=== PATIENT | male | born 1980 | race Caucasian/White ===

== ENCOUNTER 2019-07-17 08:25 | Outpatient (CLI) | payer OTHER ==
[~2019-07-17] VITALS: Ht 188 cm; Wt 86.4 kg
--- NOTE | ~2019-07-17 | HEMODYNAMI ---
PATIENT:SHANTI CORDOBA MEDICAL RECORD: [id number] : 80 LOCATION:[facility] ADMISSION DATE: 07/17/19 Generatedon:07/17/201911:25 Patient name: SHANTI CORDOBA Patient #: [id number] SSN: [id number] : 1980 Date of study: 07/17/2019 Page: Of Hemodynamic Procedure Report Patient Data Patient Demographics Procedure consent was obtained First Name: SHANTI Gender: Male Last Name: BERYL : 1980 Patient #: [id number] Age: 39 year(s) Race: SSN: [id number] Additional ID: [id number] Contact details [address]: [address] [place] [address] State: [place] City: [place] Zip code: [address] Past Medical History Allergies: No known allergies Admission Admission Data Admission Date: 07/17/2019 Admission Time: 8:25 Arrival Date: 07/17/2019 Arrival Time: 0:00 Admit Source: Other Insurance Payor: Private health insurance [facility] #: [id number] Height (in.): 74 BSA: 2.13 (m2) Height (cm.): 187.96 BMI: 24.44 (kg/m2) Weight (lbs.): 190.39 Weight (kg.): 86.36 Lab Results Lab Result Date: 07/17/2019 Lab Result Time: 0:00 Biochemistry Name Units Result Min Max BUN mg/dl 20 --(----)*- 7 18 Creatinine mg/dl 1.2 --(---*)-- 0.6 1.3 eGFR ml/min 72 *-(----)-- 90 120 NONAFRICAN CBC Name Units Result Min Max Hematocrit % 50.4 --(--*-)-- 42 54 Hemoglobin g/dl 17.5 --(---*)-- 13.5 17.5 Procedure Procedure Types Cath Procedure Diagnostic Procedure LHC LHC w/Coronaries Procedure Description Procedure Date Procedure Date: 07/17/2019 Procedure Start Time: 11:09 Procedure End Time: 11:20 Procedure Staff Name Function Taiwo Daly MD Performing Physician Norma Mcgregor RT Monitor Sheyla Wilson RT Monitor Joseph Peña RN Nurse Karen Oliveros RT Scrub Indication Cardiomyopathy Procedure Data Cath Procedure Fluoroscopy Diagnostic fluoroscopy Total fluoroscopy Time: 1.4 time: 1.4 min min Diagnostic fluoroscopy Total fluoroscopy dose: 357 dose: 357 mGy mGy Contrast Material Contrast Material Type Amount (ml) Isovue 370 53 Entry Location Entry Primary Successful Side Size Upsize Upsize Entry Closure Tavares ccessful Closure Location (Fr) 1 (Fr) 2 (Fr) Remarks Device Remarks Radial Right 6 Fr Mechanical artery Short Compression Estimated blood loss: 5 ml Diagnostic catheters Device Type Used For End Catheter Placement DIAGNOSTIC [place] 110cm 5 Procedure Fr catheter (122110) DIAGNOSTIC AR2 MOD 5 Fr Procedure catheter ([id number]) Procedure Complications No complications Procedure Medications Medication Administration Route Dosage Oxygen etCO2 Nasal cannula 2 l/min Lidocaine 2% added to field 20 Heparin Flush Bag added to field 2 bags (1000units/500ml NS) 0.9% NaCl I.V. 100 ml/hr Radial Cocktail I.A. 1 syringe (Verapamil 2mg/Nitro 400mcg/Heparin 1500units) Versed I.V. 1 mg Fentanyl I.V. 50 mcg Versed I.V. 1 mg Fentanyl I.V. 50 mcg Versed I.V. 1 mg Fentanyl I.V. 50 mcg Hemodynamics Rest BSA: 2.13 (m2) HGB: 17.5 (g/dl) O2 Consumption: Estimated: 289.68 (ml/min) O2 Co nsumption indexed: Estimated:136 (ml/min/m) Pre Cath Intra NCS Post Cath Vital Signs Time Heart Resp SPO2 etCO2 NIBP Rhythm Pain Sedation Rate (ipm) (%) (mmHg) (mmHg) Status Level (bpm) 10:57:40 83 11 100 33.9 110/72(85) A-Fib 0 (11) 10(A) , No pain 11:01:52 92 16 97 31.6 101/74(90) A-Fib 0 (11) 10(A) , No pain 11:06:02 95 19 94 33.9 98/66(78) A-Fib 0 (11) 10(A) , No pain 11:10:14 81 12 93 34.6 96/61(85) A-Fib 0 (11) 10(A) , No pain 11:14:23 117 10 91 45.2 116/65(91) A-Fib 0 (11) 9(A) , No pain 11:18:29 130 11 94 0 102/81(93) A-Fib 0 (11) 9(A) , No pain 11:22:41 100 13 93 47.5 102/69(88) A-Fib 0 (11) 10(A) , No pain Medications Time Medication Route Dose Verified Delivered Reason Notes Effectiveness by by 11:01:28 Oxygen etCO2 2 l/min Taiwo Buffie used for Nasal Addy Peña RN procedure cannula 11:01:35 Lidocaine 2% added 20ml Taiwoamari Maravilla for local to vial Addy Daly MD anesthetic field 11:01:44 Heparin Flush added 2 bags Taiwo Maravilla used for Bag to Addy Daly MD procedure (1000units/500ml field NS) 11:01:53 0.9% NaCl I.V. 100 Taiwoamari Ruiz Per ml/hr Addy Peña RN physician 11:09:43 Versed I.V. 1 mg Taiwo Hernándezie for sedation Addy Peña RN 11:09:48 Fentanyl I.V. 50 mcg Taiwo Hernándezie for sedation Addy Peña RN 11:12:33 Versed I.V. 1 mg Taiwo Buffie for sedation Addy Peña RN 11:12:36 Fentanyl I.V. 50 mcg Taiwo Ruiz for sedation Addy Peña RN 11:13:34 Radial Cocktail I.A. 1 Taiwo Maravilla for (Verapamil syringe Addy Daly MD vasodilation 2mg/Nitro 400mcg/Heparin 1500units) 11:17:01 Versed I.V. 1 mg Taiwo Hernándezie for sedation Addy Peña RN 11:17:04 Fentanyl I.V. 50 mcg Taiwo Hernándezie for sedation Addy Peña RN Procedure Log Time Note 10:37:45 Diagnostic Cath Status : Urgent 10:38:24 Indication : Cardiomyopathy 10:38:37 Admit Source: Other 10:38:44 Procedure Status Elective Heart Cath (OP). 10:38:46 Time tracking: Regular hours (M-F 7:00 - 5:00) 10:38:51 Plan of Care:Hemodynamics will remain stable., Cardiac rhythm will remain stable., Comfort level will be maintained., Respiratory function will remain adequate., Patient/ family verbilizes understanding of procedure., Procedure tolerated without complication., Recovers from procedure without complications.. 10:39:04 Joseph Peña RN sent for patient. Start room use. 10:43:11 Lab results completed and on chart. 10:43:16 Stress Test: no; N/A ? 10:43:18 Risk of Mortality: .1 10:43:22 Risk of blood transfusion: .1 10:43:25 Risk of ERICA: 0.7 10:44:32 Lab Result : BUN 20 mg/dl 10:44:32 Lab Result : Creatinine 1.2 mg/dl 10:44:32 Lab Result : Hemoglobin 17.5 g/dl 10:44:32 Lab Result : eGFR NONAFRICAN 72 ml/min 10:44:33 Lab Result : Hematocrit 50.4 % 10:46:30 Informed consent obtained and on chart 10:47:00 Patient allergic to No known allergies 10:48:28 Patient Height : 74 inches 10:48:34 Patient Weight : 190.39 lbs 10:48:42 Insurance Payor : Private health insurance 10:49:02 Arrival Date: 07/17/2019 12:00:00 AM 10:50:52 Patient received from Pre/Post Procedure Room to CCL 1 Alert and oriented. Tansferred to table in Supine position. 10:50:53 Warm blankets applied, and kris hugger turned on for patient comfort. 10:50:54 Correct patient and procedure confirmed by team. 10:50:54 ECG and BP/O2 sat monitors applied to patient. 10:56:33 Vital chart was started 10:56:37 Rhythm: atrial fibrillation 10:56:38 Full Disclosure recording started 10:56:49 H&P Date Dictated: 07/13/2019 Within 30 days and on chart., H&P Addendum completed by physician on day of procedure. (MUST COMPLETE FOR ALL OUTPATIENTS). 10:56:50 Pre-procedure instructions explained to patient. 10:56:51 Pre-op teaching completed and patient verbalized understanding. 10:56:52 Family in patients room. 10:56:53 Patient NPO since Midnight. 10:57:00 Is the patient allergic to Iodine/contrast media? No. 10:57:01 Is patient on blood thinner?Yes 10:57:09 ACC The patient was administered the following blood thiners within the last 24 hours: ACCPradaxa 10:57:11 Patient diabetic? No. 10:57:14 Previous problem with sedation/anesthesia? No ? 10:57:14 Snore? Yes 10:57:17 Sleep apnea? No 10:57:19 Deviated septum? No 10:57:19 Opens mouth fully? Yes 10:57:20 Sticks out tongue? Yes 10:57:22 Airway obstruction? No ? 10:57:24 Dentures? No ? 10:57:27 Pre procedure: right dorsailis pedis pulse 2+ Normal; easily identifiable; not easily obliterated 10:57:29 Modified Merrill's test Radial < 7 seconds 10:57:31 Patient pain scale 0/10 ?. 10:57:36 IV patent on arrival in left hand with 0.9% NaCl at KVO. 10:57:45 Right Radial & Right Groin area was prepped with chlora-prep and draped in sterile fashion 10:57:46 Alarms reviewed by R. N. 10:57:46 Sharps counted by scrub and verified by R.N. 10:59:42 Use device set Radial Dx or PCI 10:59:43 ACIST Syringe (27429) opened to sterile field. 10:59:44 Bag Decanter (2001S) opened to sterile field. 10:59:44 ACIST Hand Control (80522) opened to sterile field. 10:59:45 ACIST Manifold (57182) opened to sterile field. 10:59:45 Tegaderm 4 x 4 (1626W) opened to sterile field. 10:59:47 Medline Cath Pack ([id number]) opened to sterile field. 10:59:47 MBrace Wrist Support ([id number]) opened to sterile field. 10:59:48 EMERALD Guide Wire (940-701) opened to sterile field. 10:59:48 SHEATH 6FR RAIN (5002689) opened to sterile field. 11:01:28 Oxygen 2 l/min etCO2 Nasal cannula was administered by Joseph Peña RN; used for procedure; Verbal order read back and verified. 11:01:35 Lidocaine 2% 20ml vial added to field was administered by Taiwo Daly MD; for local anesthetic; Verbal order read back and verified. 11:01:44 Heparin Flush Bag (1000units/500ml NS) 2 bags added to field was administered by Taiwo Daly MD; used for procedure; Verbal order read back and verified. 11:01:53 0.9% NaCl 100 ml/hr I.V. was administered by Joseph Peña RN; Per physician; Verbal order read back and verified. 11:08:04 --------ALL STOP TIME OUT------ 11:08:05 Final Timeout: patient, procedure, and site verified with staff and physician. All members of the team are in agreement. 11:08:15 Right Radial & Right Groin site verified by team. 11:08:20 Fire Safety Assessment: A--An alcohol-based skin anteseptic being used preoperatively., C--Open oxygen or nitrous oxide is being used., D--An ESU, laser, or fiber-optic light is being used. 11:08:24 Physical assessment completed. ASA score P 2 - A patient with mild systemic disease as per Taiwo Daly MD. 11:08:28 2) 60-89 Mildly reduced kidney function, and other findings (as for stage 1) point to kidney disease. 11:08:32 Maximum allowable contrast dose (3.7 X eGFR X 0.75)200 ml. 11:08:37 Sedation plan: IV Moderate Sedation Medication:Versed, Fentanyl 11:09:29 Procedure started. 11:09:43 Versed 1 mg I.V. was administered by Joseph Peña RN; for sedation; Verbal order read back and verified. 11:09:48 Fentanyl 50 mcg I.V. was administered by Joseph Peña RN; for sedation; Verbal order read back and verified. 11:09:57 Local anesthetic to right radial artery with Lidocaine 2% by Taiwo Daly MD.INITIAL ACCESS ONLY 11:12:33 Versed 1 mg I.V. was administered by Joseph Peña RN; for sedation; Verbal order read back and verified. 11:12:36 Fentanyl 50 mcg I.V. was administered by Joseph Peña RN; for sedation; Verbal order read back and verified. 11:12:36 A 6 Fr Short sheath was inserted into the Right Radial artery 11:12:52 A DIAGNOSTIC [place] 110cm 5 Fr catheter ([id number]) was advanced over the wire and used for Procedure. 11:13:30 LV gram done using DAN 11:13:34 Radial Cocktail (Verapamil 2mg/Nitro 400mcg/Heparin 1500units) 1 syringe I.A. was administered by Taiwo Daly MD; for vasodilation; Verbal order read back and verified. 11:13:57 Injector settings: Ml/sec: 10, Volume: 20, 11:14:18 EF : 20 % 11:14:32 LCA angiography performed. 11:15:45 Catheter exchanged over wire. 11:17:01 Versed 1 mg I.V. was administered by Joseph Peña RN; for sedation; Verbal order read back and verified. 11:17:04 Fentanyl 50 mcg I.V. was administered by Joseph Peña RN; for sedation; Verbal order read back and verified. 11:17:17 A DIAGNOSTIC AR2 MOD 5 Fr catheter ([id number]) was advanced over the wire and used for Procedure. 11:17:32 RCA angiography performed. 11:17:40 Catheter removed. 11:17:43 ZEPHYR REGULAR TR BAND (886841) opened to sterile field. 11:17:57 Sheath removed intact; hemostasis achieved with Mechanical Compression to the Right Radial artery. 11:18:00 Procedure ended.(Physican Out) 11:18:14 Fluoroscopy time 01.40 minutes. 11:18:18 Fluoroscopy dose: 357 mGy 11:18:18 Flurop Dose total: 357 11:18:24 Dose Area Product 86285 mGy/cm. 11:18:29 Contrast amount:Isovue 370 53ml. 11:18:32 Maximum allowable dose exceeded? No. 11:18:33 Sharps counted by scrub and verified by R.N. 11:18:35 Shaniko band inflated with 10cc of air. 11:18:39 Post Procedure Pulses reassessed and unchanged 11:18:43 Post procedure: right dorsailis pedis pulse 2+ Normal; easily identifiable; not easily obliterated. 11:18:47 Post-procedure physical assessment completed. ASA score P 2 - A patient with mild systemic disease as per Taiwo Daly MD. 11:18:50 Post procedure rhythm: unchanged. 11:18:53 Estimated blood loss: 5 ml 11:18:55 Post procedure instruction explained to patient.Patient verbalizes understanding. 11:18:56 Patient needs reinforcement of post procedure teaching. 11:19:59 Procedure and supply charges have been captured, reviewed, submitted and are correct. 11:20:03 Procedure Complication : No complications 11:20:06 Vital chart was stopped 11:20:08 [facility] Findings: mild to moderate CAD (<70%) 11:20:12 Operative report dictated upon procedure completion. 11:20:12 See physician's report for complete and final results. 11:20:14 Report given to Pre/Post Procedure Room. 11:20:17 Patient transfered to Pre/Post Procedure Room with Stretcher. 11:20:20 Procedure ended. 11:20:20 Full Disclosure recording stopped 11:23:46 End room use (Document Last) 11:24:34 End room use (Document Last) 11:25:10 End room use (Document Last) Device Usage Item Name Manufacture Quantity Catalog Hospital Part Current Minima l Lot# / Number Charge Number Stock Stock Serial# Code ACIST Acist 1 99621 986904 163954 659521 20 Syringe Medical (15465) Systems Inc Bag Microtek 1 2001S 899499 42970 242127 5 Decanter Medical Inc. (2001S) ACIST Hand Acist 1 00763 760503 532482 317808 5 Control Medical (27106) Systems Inc ACIST Acist 1 78223 347380 766886 250168 5 Manifold Medical (61987) Systems Inc Tegaderm 4 3M 1 1626W 047253 953403 071357 5 x 4 (1626W) Medline Medline 1 [id number] 447370 67399 612199 5 Cath Pack ([id number]) MBrace Advanced 1 140-0250-00 406403 50072 143491 5 Wrist Vascular Support Dynamics (261056049) EMERALD Cardinal 1 502-455 386695 668008 568433 5 Guide Wire Health (472-455) SHEATH 6FR Cardinal 1 5083345 822837 7236760 061148 5 [facility] (9713453) DIAGNOSTIC Terumo 1 40-5013 296537 605807 898465 5 [place] 110cm 5 Fr catheter (164526) DIAGNOSTIC Cardinal 1 193777W 704330 084590 593128 20 AR2 MOD 5 Health Fr catheter (012772N) ZEPHYR Cardinal 1 843019 548740 6054617 252061 5 REGULAR TR Health BAND (662543) Signature Audit Snook Stage Time Signature Unsigned Intra-Procedure 07/17/2019 Sheyla Wilson 11:24:34 AM RT(R) Intra-Procedure 07/17/2019 Joseph Peña RN 11:25:10 AM Intra-Procedure 07/17/2019 Taiwo Daly 11:25:47 AM [address] [place] [address]
--- NOTE | ~2019-07-17 | OP ---
PATIENT NAME: SHANTI CORDOBA MEDICAL RECORD: [id number] :80 LOCATION:D.CAT ADMISSION DATE: SURGEON: GIANNA DEMPSEY MD DATE OF OPERATION: 07/17/2019 PROCEDURES: 1. Left heart catheterization. 2. Selective coronary angiography. 3. Left ventriculogram. INDICATION: Cardiomyopathy and congestive heart failure. PROCEDURE PERFORMED: After informed consent was obtained and after a detailed description of risks, benefits as well as alternative therapies, the patient elected to proceed with angiogram and heart catheterization. The right radial area was prepped and draped in normal sterile fashion. Right radial artery was cannulated via modified Seldinger technique with placement of 5-Chinese sheath. All catheters exchanged through this sheath. FINDINGS: Left ventriculogram was performed in standard 30-degree DAN view, reveals global hypokinesis, ejection fraction is 20%. SELECTIVE CORONARY ANGIOGRAPHY: Left main, left anterior descending, left circumflex, right coronary artery are all smooth-walled vessels with no angiographic evidence of coronary artery disease. OVERALL IMPRESSION: 1. No angiographic evidence of coronary artery disease. 2. Nonischemic cardiomyopathy. TRANSINT:[id number] Voice Confirmation ID: [id number] DOCUMENT ID: [id number] GIANNA DEMPSEY MD CC: [id number] DICTATION DATE: 07/17/19 1123 MANAGER TRAVEL: 07/17/19 2144 DEP CLI 07/17/19 [id number] [place] [address]
[2019-07-17] MEDS ORDERED: TOPROL XL50 MG PO (08:40)
[2019-07-17] MEDS ORDERED: FUROSEMIDE40 MG PO (08:41)
[2019-07-17] MEDS ORDERED: ENTRESTO 24 MG1 EACH PO (08:41)
[2019-07-17] MEDS ORDERED: ALDACTONE25 MG PO (08:42)
[2019-07-17] MEDS ORDERED: PRADAXA150 MG PO (08:42)
[2019-07-17 08:46] VITALS: BP 96/64; Ht 188 cm; Wt 86.4 kg
[2019-07-17 09:04] LABS: BASOPHILS 0.5 % (0-2); EOSINOPHILS 5.1 % (0-7); HEMATOCRIT 50.4 % (42.0-54.0); HEMOGLOBIN 17.5 g/dL (13.5-17.5); IMMATURE GRANULOCYTES 0.4 % (0-5); LYMPHOCYTES 31.2 % (15-50); MCH 32.6 pg (26.0-34.0); MCHC 34.7 g/dL (31.0-37.0); MEAN PLATELET VOLUME 9.7 fL (7.4-10.4); MONOCYTES 12.3 % (2-11); NEUTROPHILS 50.5 % (40-80); PLATELET COUNT 206 10x3/uL (130-400); RBC 5.36 10x6/uL (4.20-6.10); RDW 12.1 % (11.5-14.5); WBC 5.7 10x3/uL (4.8-10.8)
[2019-07-17 09:23] LABS: ANION GAP 12.4 mmol/L (8-16); CALCIUM 9.2 mg/dL (8.5-10.1); CARBON DIOXIDE 29.7 mmol/L (21.0-32.0); CHOL - HDL RATIO 2.6 ratio (2.3-4.9); CREATININE - SERUM 1.2 mg/dL (0.6-1.3); LDL-HDL RATIO 1.3 ratio (1.5-3.5); POTASSIUM - SERUM 4.1 mmol/L (3.5-5.1)
--- NOTE | 2019-07-17 11:32 | NUR ---
PT ARRIVED BY STRETCHER. PLACED ON MONITORS. ASSESSMENT COMPLETED. FAMILY AT BEDSIDE. DR. DEMPSEY ROUNDED AND SPOKE WITH PT'S FAMILY.
[2019-07-17] MEDS ORDERED: COREG12.5 MG PO (11:47)
--- NOTE | 2019-07-17 11:47 | NUR ---
PT RESTING COMFORTABLY. VSS. RIGHT RADIAL Z BAND IN PLACE. NO BLEEDING/HEMATOMA NOTED.
--- NOTE | 2019-07-17 12:19 | NUR ---
PT RESTING COMFORTABLY. VSS. RIGHT WRIST Z BAND IN PLACE. NO BLEEDING/HEMATOMA NOTED. FAMILY AT BEDSIDE.
--- NOTE | 2019-07-17 12:35 | NUR ---
2cc OF AIR REMOVED FROM Z BAND. NO BLEEDING/HEMATOMA NOTED. CALL LIGHT WITHIN REACH. FAMILY AT BEDSIDE. PT SITTING UP AND EATING SANDWICH AT THIS TIME. DENIES NAUSEA/PAIN.
--- NOTE | 2019-07-17 12:50 | NUR ---
3cc OF AIR REMOVED FROM Z BAND. NO BLEEDING/HEMATOMA NOTED. CALL LIGHT WITHIN REACH. VSS AT THIS TIME.
--- NOTE | 2019-07-17 13:05 | NUR ---
4cc OF AIR REMOVED FROM Z BAND. NO BLEEDING/HEMATOMA NOTED. VSS. NO NEEDS AT THIS TIME. CALL LIGHT WITHIN REACH.
--- NOTE | 2019-07-17 13:25 | NUR ---
Z BAND REMOVED AND DRESSING APPLIED. NO BLEEDING/HEMATOMA NOTED. PIV D/C'D WITH CATH TIP INTACT. TOLERATED WELL. PT ALERT AND ORIENTED. VSS AT THIS TIME. PT INSTRUCTED TO GET UP AND DRESSED AT THIS TIME.
--- NOTE | 2019-07-17 13:35 | NUR ---
DISCUSSED DISCHARGE INSTRUCTIONS WITH PT AND PT'S FAMILY. THEY VOICED UNDERSTANDING. RIGHT WRIST DRESSING C/D/I. NO S/S OF HEMATOMA NOTED.
--- NOTE | 2019-07-17 13:45 | NUR ---
PT AMBULATED TO RESTROOM. VOIDED WITHOUT DIFFICULTY. STEADY GAIT NOTED. PT DENIES DIZZINESS OR WEAKNESS AT THIS TIME.
--- NOTE | 2019-07-17 13:50 | NUR ---
RIGHT WRIST DRESSING C/D/I. NO S/S OF HEMATOMA NOTED. PT TAKEN OUT TO VEHICLE BY WHEELCHAIR. NO S/S OF DISTRESS NOTED. ALL BELONGINGS AND PAPERWORK IN HAND.
== END 2019-07-17 13:50 | disposition home or self-care (01) ==
LOC: D.CATH 08:25
PROVIDERS: ATTEND Internal Medicine Interventional Cardiology
DX: I42.9 Cardiomyopathy, unspecified (principal); I50.9 Heart failure, unspecified; Z82.49 Family history of ischemic heart disease and other diseases of the circulatory system; I48.91 Unspecified atrial fibrillation